=== PATIENT | male | born 1935 | race Caucasian/White ===

== ENCOUNTER 2016-10-02 13:23 | Emergency (ER) | payer MEDICARE, OTHER ==
--- NOTE | 2016-10-02 13:55 | EDM.PDOC ---
ED HISTORY OF PRESENT ILLNESS - General Chief Complaint: Chest Pain Stated Complaint: CHEST PAIN Time Seen by Provider: 10/02/16 13:50 Source of Information: Reports: Patient History Limitations: Reports: No limitations - History of Present Illness INITIAL COMMENTS - FREE TEXT/NARRATIVE: 80-year-old male presents the ED for evaluation of left upper anterior chest pain which is primarily sharp and stabbing and is intermittent. It's been bothersome almost all day long. He did go for a long walk and it didn't seem to make the pain any worse. Of note he has a history of coronary disease with triple bypass 12 years ago and subsequently has numerous stents placed. Pain does radiate through to his back above his scapula area. Has not made him feel short of breath and he does not have any true pleuritic pain with deep breathing. Denies cough or sputum production. He has not been sick recently. No recent changes in medications. No recent long trips or risk factors for DVT. He is chronically anticoagulated with Coumadin 6 mg daily. Symptom Onset Date: 10/02/16 Symptom Onset Time: 08:00 Timing/Duration: Reports: Hour(s):, Sudden onset Severity: moderate Location, General: Reports: chest (Left precordial and upper chest radiating through to the mid back.) Quality: Reports: Sharp, Stabbing Improves with: Reports: None Worsens with: Reports: None Context, General: Reports: Other (Pain is present at rest and comes and goes.). Denies: Activity, Exercise, Lifting, Sick contact, Trauma Associated Symptoms (General): Reports: chest pain. 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 SPRAYER: Reports: Other (see below) (None) - Related Data Allergies/ADRs: Allergies Allergy/AdvReac Type Severity Reaction Status Date / Time [id number] Reductase AdvReac Muscle Verified 10/02/16 13:30 Inhibitor Aches Home Meds: Home Meds .[place] 2 tab PO DAILY 12/08/13 [History] .Capsicum 3 cap PO DAILY 12/08/13 [History] .Chondroitin 1 tab PO DAILY 12/08/13 [History] .Coenzyme 1 cap PO DAILY 12/08/13 [History] .Methylsulfonylmethane 1 cap PO DAILY 12/08/13 [History] .Multiple Enzyme 1 tab PO DAILY 12/08/13 [History] .Oil Of Oregano 2 cap PO DAILY 12/08/13 [History] .Vitamin B12 1 tab PO DAILY 12/08/13 [History] .Vitamin D3 2,000 units PO DAILY 12/08/13 [History] Aspirin [Halfprin] 81 mg PO BID 12/08/13 [History] Bromocriptine [Parlodel] 1.25 mg PO DAILY 12/08/13 [History] Carvedilol [Coreg] 6.25 mg PO BID 12/08/13 [History] Flaxseed [Flaxseed Oil] 1,000 mg PO DAILY 12/08/13 [History] Garlic 1 each PO DAILY #0 12/08/13 [Rx] Cyndy Root [Cyndy] 250 mg PO DAILY 12/08/13 [History] Methylcellulose [Citrucel] 2 tbsp PO DAILY 12/08/13 [History] Niacin (Inositol Niacinate) [Niacin Flush Free 500 mg Cap] 2,000 mg PO DAILY 12/16 [History] [place]-3 Fatty Acids [Independence-3] 2,000 mg PO DAILY #0 12/08/13 [Rx] Warfarin Sodium [Coumadin] 6 mg PO DAILY #0 12/08/13 [Rx] Isosorbide Mononitrate [Imdur] 30 mg PO DAILY 07/21/16 [History] Multivitamin with Minerals [Manav Multivitamin with Mineral] 1 tab PO DAILY 07/21 [History] Acetaminophen/HYDROcodone [[place] 325-5 MG] 1 tab PO Q4H #12 tablet 10/02/16 [Rx] Past Medical History Cardiovascular History: Reports: Bypass, CAD, High cholesterol, Stents Respiratory History: Reports: Other (see below) Other Respiratory History: 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 Gastrointestinal History: Reports: Hiatal hernia Hematologic History: Reports: Other (see below) Other Hematologic History: Factor V - Infectious Disease History Infectious Disease History: Reports: Measles, Mumps - Past Surgical History Cardiovascular Surgical History: Reports: Coronary artery bypass, Coronary artery stent Social & Family History - Tobacco Use Smoking Status *Q: Former Smoker Years of Tobacco use: 10 Packs/Tins Daily: 1 Used Tobacco, but Quit: Yes Month Tobacco Last Used: 50 years ago - Caffeine Use Caffeine Use: Reports: Coffee - Alcohol Use Days Per Week of Alcohol Use: 1 - Recreational Drug Use Recreational Drug Use: No - Living Situation & Occupation Living situation: Reports: , with spouse Occupation: retired ED ROS GENERAL - Review of Systems Review Of Systems: See Below Constitutional: Denies: fever, chills, malaise, fatigue, decreased appetite, weight loss HEENT: Reports: No symptoms Respiratory: Denies: Shortness of Breath, Wheezing, Pleuritic Chest Pain, Cough , Sputum, Hemoptysis, Other Cardiovascular: Reports: Chest pain (Left upper anterior chest sharp stabbing pain which appears to be muscles for little.), Blood pressure problem. Denies: Claudication (Usually runs a little low due to medications.), Dyspnea on exertion, Edema, Lightheadedness, Orthopnea Endocrine: Reports: no symptoms GI/Abdominal: Reports: No symptoms : Reports: no symptoms, frequency, other (. X2) Musculoskeletal: Reports: no symptoms Skin: Reports: no symptoms Neurological: Reports: No Symptoms Psychiatric: Reports: No symptoms Hematologic/Lymphatic: Reports: no symptoms Immunologic: Reports: no symptoms ED EXAM, GENERAL - Physical Exam Exam: See Below Exam Limited By: No limitations General Appearance: alert, WD/WN, no apparent distress, anxious (My) Eye Exam: bilateral eye: normal inspection (Normal) Throat/Mouth: Normal inspection, Normal lips, Normal teeth, Normal oropharynx Head: atraumatic, normocephalic Neck: normal inspection, supple, non-tender, full range of motion. No: carotid bruit, lymphadenopathy (L), lymphadenopathy (R) Respiratory/Chest: no respiratory distress, lungs clear, normal breath sounds, no accessory muscle use, chest non-tender, other (Cannot identify any specific area of localized pain in the left upper anterior 45 ribs.) Cardiovascular: normal peripheral pulses, regular rate, rhythm, no edema, no gallop, no murmur, no rub, other (Well healed midline sternotomy incision) Peripheral Pulses: 1+: posterior tibial (L), posterior tibial (R), dorsalis pedis (L), dorsalis pedis (R) GI/Abdominal: normal bowel sounds, soft, non tender, no organomegaly, no distention Back Exam: normal inspection, full range of motion. No: CVA tenderness (L), CVA tenderness (R) Extremities: normal inspection, normal range of motion, non-tender, no pedal edema, normal capillary refill, other (Tabs are nontender nonswollen.). No: pedal edema, leg pain Neurological: alert, oriented, CN II-XII intact, normal cognition Psychiatric: normal affect, normal mood Skin Exam: Warm, Dry, Intact, Normal color, No rash EKG INTERPRETATION EKG Date: 10/02/16 Time: 13:30 Rhythm: NSR Rate (beats/min): 65 [place]: normal P-wave: present QRS: normal ST-T: normal QT: prolonged (Family prolonged) Course - Vital Signs Last Recorded V/S: Last Vital Signs Temp 35.7 C 10/02/16 13:32 Pulse 65 10/02/16 17:25 Resp 16 10/02/16 17:25 BP 93/58 L 10/02/16 17:25 Pulse Ox 90 L 10/02/16 17:25 - Orders/Labs/Meds Labs: Laboratory Tests 10/02/16 10/02/16 10/02/16 Range/Units 13:49 13:49 13:49 WBC 5.73 (4.23-9.07) K/mm3 RBC 4.28 L (4.63-6.08) M/mm3 Hgb 14.1 (13.7-17.5) gm/L Hct 41.4 (40.1-51.0) % MCV 96.7 H (79.0-92.2) fl MCH 32.9 H (25.7-32.2) pg MCHC 34.1 (32.2-35.5) g/dl RDW Std Deviation 43.7 (35.1-43.9) fL Plt Count 174 (163-337) K/mm3 MPV 9.5 (9.4-12.3) fl Neutrophils % (Manual) 56 (40-60) % Band Neutrophils % 0 (0-10) % Lymphocytes % (Manual) 34 (20-40) % Atypical Lymphs % 0 % Monocytes % (Manual) 3 (2-10) % Eosinophils % (Manual) 6 (0.8-7.0) % Basophils % (Manual) 1 (0.2-1.2) Platelet Estimate Adequate Poikilocytosis 1+ slight Anisocytosis 1+ slight Macrocytosis 1+ slight RBC Morph Comment Not Reportable PT 16.7 H (8.0-13.0) SECONDS INR 1.49 D-Dimer, Quantitative (0.19-0.59) mg/L Sodium 136 (136-145) mEq/L Potassium 4.5 (3.5-5.1) mEq/L Chloride 105 (98-107) mEq/L Carbon Dioxide 26 (21-32) mEq/L Anion Gap 9.5 (5-15) BUN 20 H (7-18) mg/dL Creatinine 0.6 L (0.7-1.3) mg/dL Est Cr Clr Drug Dosing 94.87 mL/min Estimated GFR (MDRD) > 60 (>60) mL/min BUN/Creatinine Ratio 33.3 H (14-18) Glucose 132 H (83-115) mg/dL Calcium 8.4 L (8.5-10.1) mg/dL Total Bilirubin 0.3 (0.2-1.0) mg/dL AST 18 (15-37) U/L ALT 21 (16-63) U/L Alkaline Phosphatase 52 (46-116) U/L CK-MB (CK-2) 1.3 (0-3.6) ng/ml Troponin I < 0.017 (0.00-0.056) ng/mL C-Reactive Protein < 0.2 (<1.0) mg/dL B-Natriuretic Peptide (0-100) pg/mL Total Protein 6.6 (6.4-8.2) g/dl Albumin 3.3 L (3.4-5.0) g/dl Globulin 3.3 gm/dL Albumin/Globulin Ratio 1.0 (1-2) 10/02/16 10/02/16 Range/Units 13:49 13:49 WBC (4.23-9.07) K/mm3 RBC (4.63-6.08) M/mm3 Hgb (13.7-17.5) gm/L Hct (40.1-51.0) % MCV (79.0-92.2) fl MCH (25.7-32.2) pg MCHC (32.2-35.5) g/dl RDW Std Deviation (35.1-43.9) fL Plt Count (163-337) K/mm3 MPV (9.4-12.3) fl Neutrophils % (Manual) (40-60) % Band Neutrophils % (0-10) % Lymphocytes % (Manual) (20-40) % Atypical Lymphs % % Monocytes % (Manual) (2-10) % Eosinophils % (Manual) (0.8-7.0) % Basophils % (Manual) (0.2-1.2) Platelet Estimate Poikilocytosis Anisocytosis Macrocytosis RBC Morph Comment PT (8.0-13.0) SECONDS INR D-Dimer, Quantitative 0.19 (0.19-0.59) mg/L Sodium (136-145) mEq/L Potassium (3.5-5.1) mEq/L Chloride (98-107) mEq/L Carbon Dioxide (21-32) mEq/L Anion Gap (5-15) BUN (7-18) mg/dL Creatinine (0.7-1.3) mg/dL Est Cr Clr Drug Dosing mL/min Estimated GFR (MDRD) (>60) mL/min BUN/Creatinine Ratio (14-18) Glucose (83-115) mg/dL Calcium (8.5-10.1) mg/dL Total Bilirubin (0.2-1.0) mg/dL AST (15-37) U/L ALT (16-63) U/L Alkaline Phosphatase (46-116) U/L CK-MB (CK-2) (0-3.6) ng/ml Troponin I (0.00-0.056) ng/mL C-Reactive Protein (<1.0) mg/dL B-Natriuretic Peptide 30 (0-100) pg/mL Total Protein (6.4-8.2) g/dl Albumin (3.4-5.0) g/dl Globulin gm/dL Albumin/Globulin Ratio (1-2) Meds: Medications Discontinued Medications Generic Name Dose Route Start Last Admin Trade Name Freq PRN Reason Stop Dose Admin Hydromorphone HCl 0.5 mg 10/02/16 14:24 10/02/16 14:34 Dilaudid IVPUSH 10/02/16 14:25 0.5 mg ONETIME ONE Administration Ondansetron HCl 4 mg 10/02/16 14:24 10/02/16 14:34 Zofran IVPUSH 10/02/16 14:25 4 mg ONETIME ONE Administration Sodium Chloride 10 ml 10/02/16 14:24 10/02/16 14:41 Saline Flush FLUSH 10 ml ASDIRECTED PRN Administration Keep Vein Open - Radiology Interpretation Free Text/Narrative:: 72-year-old male presents the ED for evaluation of sharp stabbing pains in his left upper anterior chest that radiates through to his upper back. Started this morning no worse with walking or activity. No worse with deep breathing. 2 severe musculoskeletal in origin I will I'm not able to isolate identify a specific area of pain on examination. Reports the pain seems to radiate up and towards the left exam and upper arm as well. He has a history of coronary disease with having had triple bypass 12 years ago and has had multiple stent placements since that time. He just is worried that it's his heart but without worsening pain on exertion this is highly unlikely. No recent trips and no risk factors for DVT he is on Coumadin 6 mg daily. ECG shows sinus rhythm at 65 per minute with no signs of ischemia. Plan lab work will be commenced to include cardiac markers and a d-dimer. Not going to give him any medication for pain at this time. - Re-Assessments/Exams Free Text/Narrative Re-Assessment/Exam: 10/02/16 14:26 Jean Paul is complaining that his left chest pain is actually coming back and is a little bit worse. However given Dilaudid 0.5 mg IV with Zofran 4 mg IV for pain relief. He can take anti-inflammatories as he is on Coumadin. This x-ray done is unchanged from previous chest x-rays. Shows no evidence of a pneumothorax or infiltrate in the left upper lung field. Cardiac silhouette is within normal limits. 10/02/16 15:17 lab work reveals a total white count of 5.73. Hemoglobin is 14.1 hematocrit 41.4 platelets 174,000. PT is 16.7 INR is a little low at 1.49. D- dimer is normal at 0.19 however. Sodium 136 potassium 4.5. Pleural 5. BUN is 20. Glucose 132. BNP is 30. Cardiac markers are normal. Patient was reassured that current chest pain is not related to his heart. It appears to be muscles little in origin and when he thinks about it he was rotatory no guarding but 3 days ago which would correlate with development of muscular skeletal pain particularly if he bled into the muscles while on Coumadin. We spoke about changing his Coumadin to 8 mg 4 times weekly and 6 mg 3 times weekly to bring his INR upper portion to therapeutic value. He will followup if any further problems occur. Departure - Departure Time of Disposition: 16:58 Disposition: Home, Self-Care 01 Condition: good Clinical Impression: Non-cardiac chest pain Prescriptions: Acetaminophen/HYDROcodone [[place] 325-5 MG] 1 tab PO Q4H #12 tablet Instructions: Nonspecific Chest Pain, [id number] Referrals: Merari Garibay COMMUNICATIONS PLANNER [Primary Care Provider] - Forms: ED Department Discharge Additional Instructions: Evaluation in the emergency day in regards to left upper anterior chest pain radiating through to her back. Pain progressed in intensity as the day went on. Cardiac workup was therefore carried out and there was no evidence of heart related illness. Cardiac markers in fact are zero. Also no blood clot was identified within the lungs. Did find that you're INR was a bit on the low side at 1.49 and as we discussed I would suggest taking your Coumadin 8 mg 4 days a week and does the other days 6 mg once daily to bring the INR of closer to 2.0. Pain I believe it is musculoskeletal in origin. May be related to recent doubling of the garden a few days ago. Minimal bleeding and the muscles from being on Coumadin could cause muscle spasm and sharp pains in between ribs et cetera. I did prescribe a pain pill called [place] 5 325 mg which she can take one every 4-6 hours as necessary for pain relief if needed. I would expect that in 3-4 days' time the pain goes away completely on its own. No restrictions in terms of activity at this time. Follow up with her personal physician if any further problems occur.
[2016-10-02] MEDS ORDERED: Ondansetron 4 MG/2 ML SDV IVPUSH ONE (14:24)
[2016-10-02] MEDS ORDERED: HYDROmorphone 0.5 MG/0.5 ML Syringe IVPUSH ONE (14:24)
[2016-10-02] MEDS ORDERED: Sodium Chloride 0.9% 10 ML Syringe FLUSH PRN (14:24)
--- NOTE | 2016-10-02 14:27 | CR ---
Chest: Portable view of the chest was obtained. Comparison: Previous chest x-ray of 07/21/16. Heart size appears within normal limits for portable technique. Tortuous thoracic aorta is seen. Hiatal hernia is noted. Lungs are clear with no acute infiltrates. Old bilateral rib fractures are noted. Previous sternotomy is present. Impression: 1. Findings as noted above. No significant change is seen from prior chest x-ray. 2. Nothing acute is identified on portable chest x-ray. Diagnostic code #2
[2016-10-02 17:30] VITALS: BP 93/58
== END 2016-10-02 17:25 | disposition home or self-care (01) ==
LOC: SUPCPDRO 13:23 → JD.ED 13:23
DX: R07.81 Pleurodynia (principal); I25.10 Atherosclerotic heart disease of native coronary artery without angina pectoris; E78.00 Pure hypercholesterolemia, unspecified; Z88.8 Allergy status to other drugs, medicaments and biological substances; Z79.899 Other long term (current) drug therapy; Z79.82 Long term (current) use of aspirin; Z95.5 Presence of coronary angioplasty implant and graft; Z87.891 Personal history of nicotine dependence
CPT/HCPCS: 36415; 71010; 80053; 82553; 83880; 84484; 85025; 85379; 85610; 86140; 93005; 96374; 96375; 99285; J1170; J2405; J7050

== ENCOUNTER 2017-07-07 18:49 | Emergency (ER) | payer MEDICARE, MEDICAID ==
[2017-07-07 19:03] VITALS: BP 153/78
[2017-07-07] MEDS ORDERED: Acetaminophen/HYDROcodone 325-5 MG Tab PO ONE (19:37)
[2017-07-07] MEDS ORDERED: Albuterol 0.083% 2.5 MG/3 ML Neb Soln NEB ONE (19:37)
--- NOTE | 2017-07-07 19:43 | EDM.PDOC ---
ED HPI GENERAL MEDICAL PROBLEM - General Chief Complaint: Respiratory Problem Stated Complaint: CONGESTED/COUGH Time Seen by Provider: 07/07/17 19:29 Source of Information: Reports: Patient History Limitations: Reports: No Limitations - History of Present Illness INITIAL COMMENTS - FREE TEXT/NARRATIVE: Patient is 81-year-old male presents to the ED with worsening cough and shortness of breath. He was diagnosed with influenza a last . He has not been taking Tamiflu. States over the past 2 days the cough and shortness of breath have worsened. He was sent from the [facility] to the ED for further evaluation for pneumonia. Patient has felt warm at times. He's been eating and drinking well. Denies any nausea or vomiting. States the cough keeps him up most hours of the evening. Thus is not resting well. Cough is nonproductive. 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 - Related Data Allergies Allergy/AdvReac Type Severity Reaction Status Date / Time Pbpbynd-Mmi-Vgy Reductase AdvReac Muscle Verified 07/07/17 19:07 Inhibitor Aches Home Meds: Home Meds .Coenzyme 1 cap PO DAILY 12/08/13 [History] .Methylsulfonylmethane 1 cap PO DAILY 12/08/13 [History] .Multiple Enzyme 1 tab PO DAILY 12/08/13 [History] .Oil Of Oregano 2 cap PO DAILY 12/08/13 [History] .Vitamin B12 1 tab PO DAILY 12/08/13 [History] .Vitamin D3 2,000 units PO DAILY 12/08/13 [History] Aspirin [Halfprin] 81 mg PO BID 12/08/13 [History] Bromocriptine [Parlodel] 1.25 mg PO DAILY 12/08/13 [History] Carvedilol [Coreg] 6.25 mg PO BID 12/08/13 [History] Flaxseed [Flaxseed Oil] 1,000 mg PO DAILY 12/08/13 [History] Methylcellulose [Citrucel] 2 tbsp PO DAILY 12/08/13 [History] [place]-3 Fatty Acids [[place]-3] 2,000 mg PO DAILY #0 12/08/13 [Rx] Warfarin Sodium [Coumadin] 6 mg PO DAILY #0 12/08/13 [Rx] Isosorbide Mononitrate [Imdur] 30 mg PO DAILY 07/21/16 [History] Multivitamin with Minerals [Manav Multivitamin with Mineral] 1 tab PO DAILY 07/21 [History] Ezetimibe [Zetia] 5 mg PO DAILY 07/07/17 [History] Hydrocodone/Chlorphen P-Stirex [Tussionex Pennkinetic Susp] 5 ml PO BID PRN # 100 [email or web address].er.12h 07/07/17 [Rx] Past Medical History Cardiovascular History: Reports: Bypass, CAD, High Cholesterol, Stents Respiratory History: Reports: Other (See Below) 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 Gastrointestinal History: Reports: Hiatal Hernia Musculoskeletal History: Reports: Other (See Below) Other Musculoskeletal History: broken ribs, compression fracture x 2 vertebrae Hematologic History: Reports: Other (See Below) Other Hematologic History: factor V - Infectious Disease History Infectious Disease History: Reports: Measles, Mumps - Past Surgical History Cardiovascular Surgical History: Reports: Coronary Artery Bypass, Coronary Artery Stent GI Surgical History: Reports: Cholecystectomy Social & Family History - Family History Family Medical History: Noncontributory - Tobacco Use Smoking Status *Q: Former Smoker Years of Tobacco use: 10 Packs/Tins Daily: 1 Used Tobacco, but Quit: Yes Month Tobacco Last Used: 60 years ago - Caffeine Use Caffeine Use: Reports: Coffee - Alcohol Use Days Per Week of Alcohol Use: 1 - Recreational Drug Use Recreational Drug Use: No - Living Situation & Occupation Living situation: Reports: , with Spouse Occupation: Retired ED ROS GENERAL - Review of Systems Review Of Systems: See Below Constitutional: Reports: Fever, Chills, Malaise. Denies: Decreased Appetite HEENT: Reports: No Symptoms Respiratory: Reports: Shortness of Breath, Cough. Denies: Wheezing, Pleuritic Chest Pain, Sputum Cardiovascular: Reports: No Symptoms GI/Abdominal: Reports: No Symptoms : Reports: No Symptoms Musculoskeletal: Reports: No Symptoms Skin: Reports: No Symptoms Neurological: Reports: No Symptoms ED EXAM, GENERAL - Physical Exam Exam: See Below Exam Limited By: No Limitations General Appearance: Alert, WD/WN, No Apparent Distress Ears: Hearing Grossly Normal Nose: Normal Inspection Throat/Mouth: Normal Voice, No Airway Compromise Neck: Normal Inspection, Supple Respiratory/Chest: No Respiratory Distress, No Accessory Muscle Use, Chest Non- Tender, Wheezing (Throughout) Cardiovascular: Normal Peripheral Pulses, Regular Rate, Rhythm Peripheral Pulses: 3+: Radial (L), Radial (R) GI/Abdominal: Normal Bowel Sounds, Soft, Non-Tender, No Organomegaly, No Distention Neurological: Alert, Oriented, CN II-XII Intact, Normal Cognition, No Motor/ Sensory Deficits Psychiatric: Normal Affect, Normal Mood Skin Exam: Warm, Dry, Intact, Normal Color Course - Vital Signs Last Recorded V/S: Last Vital Signs Temp 98.0 F 07/07/17 19:00 Pulse 70 07/07/17 20:10 Resp 16 07/07/17 19:00 BP 153/78 H 07/07/17 19:00 Pulse Ox 93 L 07/07/17 19:00 - Orders/Labs/Meds Orders: Active Orders 24 hr Category Date Time Status EKG Documentation Completion [RC] STAT Care 07/07/17 19:38 Active RT Aerosol Therapy [RC] ASDIRECTED Care 07/07/17 19:38 Active RT Post Treatment Assessment [RC] Click to Edit Care 07/07/17 21:36 Active RT Pre-Treatment Assessment [RC] Click to Edit Care 07/07/17 21:36 Active Chest 2V [CR] Stat Exams 07/07/17 19:37 Taken Labs: Laboratory Tests 07/07/17 07/07/17 07/07/17 Range/Units 20:15 20:15 20:15 WBC 6.71 (4.23-9.07) K/mm3 RBC 4.04 L (4.63-6.08) M/mm3 Hgb 13.2 L (13.7-17.5) gm/L Hct 39.3 L (40.1-51.0) % MCV 97.3 H (79.0-92.2) fl MCH 32.7 H (25.7-32.2) pg MCHC 33.6 (32.2-35.5) g/dl RDW Std Deviation 43.7 (35.1-43.9) fL Plt Count 188 (163-337) K/mm3 MPV 9.1 L (9.4-12.3) fl Neut % (Auto) 60.9 (34.0-67.9) % Lymph % (Auto) 26.8 (21.8-53.1) % [place] % (Auto) 8.6 (5.3-12.2) % Eos % (Auto) 3.6 (0.8-7.0) Baso % (Auto) 0.1 (0.1-1.2) % Neut # (Auto) 4.08 (1.78-5.38) K/mm3 Lymph # (Auto) 1.80 (1.32-3.57) K/mm3 [place] # (Auto) 0.58 (0.30-0.82) K/mm3 Eos # (Auto) 0.24 (0.04-0.54) K/mm3 Baso # (Auto) 0.01 (0.01-0.08) K/mm3 Manual Slide Review Normal smear PT 41.3 H (8.0-13.0) SECONDS INR 3.50 Sodium 141 (136-145) mEq/L Potassium 4.4 (3.5-5.1) mEq/L Chloride 105 (98-107) mEq/L Carbon Dioxide 26 (21-32) mEq/L Anion Gap 14.4 (5-15) BUN 17 (7-18) mg/dL Creatinine 0.6 L (0.7-1.3) mg/dL Est Cr Clr Drug Dosing 90.09 mL/min Estimated GFR (MDRD) > 60 (>60) mL/min BUN/Creatinine Ratio 28.3 H (14-18) Glucose 105 (83-115) mg/dL Calcium 8.6 (8.5-10.1) mg/dL Total Bilirubin 0.2 (0.2-1.0) mg/dL AST 26 (15-37) U/L ALT 36 (16-63) U/L Alkaline Phosphatase 64 (46-116) U/L C-Reactive Protein 0.8 (<1.0) mg/dL Total Protein 7.0 (6.4-8.2) g/dl Albumin 3.1 L (3.4-5.0) g/dl Globulin 3.9 gm/dL Albumin/Globulin Ratio 0.8 L (1-2) Meds: Medications Discontinued Medications Generic Name Dose Route Start Last Admin Trade Name Freq PRN Reason Stop Dose Admin Hydrocodone Bitart/Acetaminophen 1 tab 07/07/17 19:37 07/07/17 19:53 [place] 325-5 Mg PO 07/07/17 19:38 1 tab ONETIME ONE Administration Albuterol 2.5 mg 07/07/17 19:37 07/07/17 20:10 Proventil Neb Soln NEB 07/07/17 19:38 2.5 mg ONETIME ONE Administration Albuterol 8 gm 07/07/17 21:36 07/07/17 22:06 Proventil Hfa INH 07/07/17 21:37 2 puff ONETIME ONE Administration Albuterol Confirm 07/07/17 22:04 Proventil Hfa Administered 07/07/17 22:05 Dose 6.7 gm INH .STK-MED ONE - Re-Assessments/Exams Free Text/Narrative Re-Assessment/Exam: Ordered [place] one tab by mouth and also albuterol neb treatment 2.5 mg 1. Initial labs and studies include CBC, chem 14, CRP, PTT/INR, chest x-ray two- view, and EKG. CXR reviewed with Dr. Brambila, no findings concerning for pneumonia. Final interpretation is pending. EKG: Sinus rhythm at rate of [address] changes noted. Labs reviewed: Blood cell count 6.71, hemoglobin 13.2, platelet count 188, INR is 3.50 which is supratherapeutic, chemistry essentially normal. CRP 0.8. Shared results of labs and chest x-ray with the patient. States the cough has subsided drastically with the above medications. He feels the best he has since onset and influenza. Due to scarring of the lungs and risk to develop pneumonia I offered to start him on a oral antibiotic to which he refuses. We'll send him home with albuterol inhaler and a prescription for Tussionex. He will follow-up with his primary care provider the end of this week or first part of next week for reevaluation. Departure - Departure Time of Disposition: 21:37 Disposition: Home, Self-Care 01 Condition: Good Clinical Impression: Influenza A, Cough - Discharge Information Prescriptions: Hydrocodone/Chlorphen P-Stirex [Tussionex Pennkinetic Susp] 5 ml PO BID PRN # 100 [email or web address].er.12h PRN Reason: Cough Instructions: Upper Respiratory Infection, Adult, [id number] Referrals: Fede Davidson [Primary Care Provider] - Forms: ED Department Discharge Additional Instructions: As discussed will have you use albuterol inhaler 1-2 puffs every 4 hours as needed for cough, wheezing, and shortness of breath. Take the Tussionex 5 mls twice a day for persistent cough. Push the fluids. Ensure adequate rest. If at any time you develop increasing shortness of breath, fever, productive cough please return back to the ED. In addition your INR was 3.5 which is supratherapeutic. Please follow up with PCP this coming Wednesday to have the Coumadin dosage adjusted and to ensure the cough is improving. Again return to the ED if you develop any new or worsening symptoms. - My Orders Last 24 Hours: My Active Orders 07/07/17 19:37 Chest 2V [CR] Stat 07/07/17 19:38 EKG Documentation Completion [RC] STAT RT Aerosol Therapy [RC] ASDIRECTED 07/07/17 21:36 RT Post Treatment Assessment [RC] Click to Edit RT Pre-Treatment Assessment [RC] Click to Edit - Assessment/Plan Last 24 Hours: My Active Orders 07/07/17 19:37 Chest 2V [CR] Stat 07/07/17 19:38 EKG Documentation Completion [RC] STAT RT Aerosol Therapy [RC] ASDIRECTED 07/07/17 21:36 RT Post Treatment Assessment [RC] Click to Edit RT Pre-Treatment Assessment [RC] Click to Edit
[2017-07-07] MEDS ORDERED: Albuterol 6.7 GM Inhaler INH ONE ×2 (21:36→22:04)
--- NOTE | 2017-07-08 10:57 | CR ---
Chest: Two views of the chest were obtained. Comparison: Prior chest x-ray of 10/02/16. Small hiatal hernia is seen. Mild bibasilar atelectasis is noted. Lungs otherwise are clear. Old bilateral rib fractures are seen. Previous right shoulder surgery is noted. Degenerative change is noted within the spine. Previous CABG is present. Impression: 1. Incidental findings. Nothing acute is seen. Diagnostic code #2
== END 2017-07-07 22:12 | disposition home or self-care (01) ==
LOC: JD.ED 18:49
DX: J10.1 Influenza due to other identified influenza virus with other respiratory manifestations (principal); E78.00 Pure hypercholesterolemia, unspecified; Z87.891 Personal history of nicotine dependence; Z79.899 Other long term (current) drug therapy; Z79.01 Long term (current) use of anticoagulants; Z79.82 Long term (current) use of aspirin; Z88.8 Allergy status to other drugs, medicaments and biological substances
CPT/HCPCS: 36415; 71046; 80053; 85025; 85610; 86140; 93005; 94640; 94664; 99284; A9270; 93010

== ENCOUNTER 2017-10-24 19:52 | Emergency (ER) | payer MEDICARE, MEDICAID ==
[2017-10-24 20:38] VITALS: BP 137/73
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
--- NOTE | 2017-10-25 07:39 | CR ---
Chest: Two views of the chest were obtained. Comparison: Prior chest x-ray of 07/07/17. Heart size is normal. Tortuous thoracic aorta is seen. Hiatal hernia appears to be present. No acute parenchymal change is seen from previous chest x-ray. Old right-sided rib deformities are seen as well as several left-sided rib deformities compatible with previous healed fractures. Degenerative change scattered within the spine. Stable compression deformity is noted at the thoracolumbar junction. Previous sternotomy is noted. Impression: 1. Multiple findings as noted above. Nothing acute is appreciated. Diagnostic code #2
== END 2017-10-24 22:38 | disposition home or self-care (01) ==
LOC: JD.ED 19:52 → SUPCPDRO 19:52 → JD.ED 22:38
DX: J06.9 Acute upper respiratory infection, unspecified (principal); E78.00 Pure hypercholesterolemia, unspecified; Z88.8 Allergy status to other drugs, medicaments and biological substances; Z79.82 Long term (current) use of aspirin; Z79.899 Other long term (current) drug therapy; Z87.891 Personal history of nicotine dependence
CPT/HCPCS: 36415; 71046; 71046-26; 80053; 83605; 85025; 87040; 99283; 99284

== ENCOUNTER 2018-02-23 13:40 | Emergency (ER) | payer MEDICARE, MEDICAID ==
[2018-02-23] MEDS ORDERED: Ondansetron 4 MG/2 ML SDV IVPUSH ONE (13:49)
[2018-02-23] MEDS ORDERED: Sodium Chloride 0.9% 10 ML Syringe FLUSH PRN (13:49)
[2018-02-23] MEDS ORDERED: Sodium Chloride 0.9% 1,000 ML IV SCH ×3 (14:00→17:15)
--- NOTE | 2018-02-23 14:40 | EDM.PDOC ---
ED HPI GENERAL MEDICAL PROBLEM - General Chief Complaint: General Stated Complaint: [facility] Time Seen by Provider: 02/23/18 13:47 Source of Information: Reports: Patient, RN Notes Reviewed - History of Present Illness INITIAL COMMENTS - FREE TEXT/NARRATIVE: 82-year-old male has been brought in by ambulance after suffering near syncope a short time ago. He states that even at lunchtime a couple of hours ago he did not "feel well. He felt his stomach was mildly upset. He had no appetite and did not eat or drink much for lunch. Later he began to feel dizzy and lightheaded. He had been feeling fine this past morning, had done considerable yardwork without difficulty. About an hour before arrival he started feeling more lightheaded, nauseated and dizzy. His gave him a nitroglycerin. Sounds like he may have had some very mild chest discomfort at the time as well but nothing severe. With the nitroglycerin he became even more lightheaded and dizzy, and may have passed out briefly. EMS was called at that time. Upon their arrival blood pressure was only 70 systolic. He was pale, diaphoretic, nauseated, no chest or abd pain at that time. Upon arrival starting to feel somewhat better and BP up to about 90 systolic. He does have history of coronary artery disease with prior bypass surgery many years ago. No recent vomiting or diarrhea. No recent black or tarry stools. He is on Coumadin, Coreg in addition to his other meds. 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 ENGINEER: Reports: Other (see below) Other 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 ENGINEER: NTG SL - Related Data Allergies Allergy/AdvReac Type Severity Reaction Status Date / Time [id number]-Zmn-Czh Reductase AdvReac Muscle Verified 07/07/17 19:07 Inhibitor Aches Home Meds: Home Meds Aspirin [Halfprin] 162 mg PO BID 12/08/13 [History] Bromocriptine [Parlodel] 1.25 mg PO DAILY 12/08/13 [History] Carvedilol [Coreg] 6.25 mg PO BID 12/08/13 [History] Flaxseed [Flaxseed Oil] 1,000 mg PO DAILY 12/08/13 [History] Methylcellulose [Citrucel] 2 tbsp PO DAILY 12/08/13 [History] [place]-3 Fatty Acids [[place]-3] 2,000 mg PO DAILY #0 12/08/13 [Rx] Ezetimibe [Zetia] 10 mg PO DAILY 07/07/17 [History] Cholecalciferol (Vitamin D3) [Vitamin D3] 2,000 unit PO DAILY 10/24/17 [History] Methylsulfonylmethane [MSM] 1 tab PO DAILY 10/24/17 [History] Oregano Oil [Oil of Oregano] 1,500 mg PO DAILY 10/24/17 [History] Ubidecarenone [Coenzyme Q-10] 1 tab PO DAILY 10/24/17 [History] Warfarin Sodium [Coumadin] 6 mg PO MOTUWEFRSA 10/24/17 [History] Warfarin Sodium [Coumadin] 8 mg PO SUTH 10/24/17 [History] Albuterol Sulfate [Proair Respiclick] 1 puff INH ASDIRECTED PRN 02/23/18 [ History] Ranger 1 cap PO DAILY 02/23/18 [History] Fluticasone/Vilanterol [Breo Ellipta 200-25 Mcg INH] 1 puff INH DAILY 02/23/18 [ History] Garlic 1 tab PO DAILY 02/23/18 [History] Cyndy Root [Cyndy] 0 mg PO DAILY 02/23/18 [History] Isosorbide Mononitrate [Imdur] 60 mg PO DAILY 02/23/18 [History] Nitroglycerin [Nitrostat] 0.4 mg PO ASDIRECTED 02/23/18 [History] Past Medical History Cardiovascular History: Reports: Angina, Blood Clots/VTE/DVT, Bypass, CAD, High Cholesterol Respiratory History: Reports: PE 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 Gastrointestinal History: Reports: Hiatal Hernia Musculoskeletal History: Reports: Fracture Other Musculoskeletal History: broken ribs, compression fracture x 2 vertebrae Hematologic History: Reports: Anticoagulation Therapy, Other (See Below) Other Hematologic History: factor V - Infectious Disease History Infectious Disease History: Reports: Measles, Mumps - Past Surgical History Cardiovascular Surgical History: Reports: Coronary Artery Bypass, Coronary Artery Stent GI Surgical History: Reports: Cholecystectomy, Hernia, Inguinal Musculoskeletal Surgical History: Reports: Other (See Below) Social & Family History - Family History Family Medical History: Noncontributory - Tobacco Use Smoking Status *Q: Former Smoker Used Tobacco, but Quit: Yes Month/Year Tobacco Last Used: 50 yrs - Caffeine Use Caffeine Use: Reports: Coffee - Recreational Drug Use Recreational Drug Use: No - Living Situation & Occupation Living situation: Reports: , with Spouse Occupation: Retired ED ROS GENERAL - Review of Systems Review Of Systems: See Below Constitutional: Reports: Diaphoresis. Denies: Fever, Chills HEENT: Denies: Throat Pain Respiratory: Denies: Shortness of Breath, Wheezing, Pleuritic Chest Pain Cardiovascular: Reports: Chest Pain (Mild tightness, gone) GI/Abdominal: Reports: Decreased Appetite, Nausea. Denies: Abdominal Pain, Diarrhea, Vomiting Musculoskeletal: Denies: Leg Pain Skin: Reports: Diaphoresis Neurological: Reports: Dizziness. Denies: Headache, Numbness, Tingling, Trouble Speaking ED EXAM, GENERAL - Physical Exam Exam: See Below General Appearance: Alert, No Apparent Distress Eye Exam: Bilateral Eye: PERRL Throat/Mouth: Normal Inspection Head: Atraumatic Neck: Supple, Full Range of Motion, Other Respiratory/Chest: No Respiratory Distress (No JVD), Lungs Clear, Normal Breath Sounds Cardiovascular: Regular Rate, Rhythm GI/Abdominal: Soft, Non-Tender. No: Guarding Rectal (Males) Exam: Normal Exam, Normal Rectal Tone, Heme - Stool (Small amount of brown stool heme-negative), Other Back Exam: No: CVA Tenderness (L), CVA Tenderness (R) Extremities: Normal Inspection, Normal Range of Motion. No: Pedal Edema, Leg Pain Neurological: Alert, Oriented, No Motor/Sensory Deficits Skin Exam: Warm, Dry, Other (Still mildly pale, no longer diaphoretic) EKG INTERPRETATION EKG Date: 02/23/18 Rhythm: NSR P-Wave: Present QRS: Normal ST-T: Other (Inverted T-wave in lead III, about 0.[address] elevation the 4, 5 and 6.) Course - Vital Signs Last Recorded V/S: Last Vital Signs Temp 97.1 F 02/23/18 14:05 Pulse 72 02/23/18 14:05 Resp 14 02/23/18 14:05 BP 83/50 L 02/23/18 14:05 Pulse Ox 89 L 02/23/18 14:05 - Orders/Labs/Meds Orders: Active Orders 24 hr Category Date Time Status EKG 12 Lead [EKG Documentation Completion] [] STAT Care 02/23/18 13:49 Active Hemoccult [Fecal Occult Blood Collection] [] Care 02/23/18 15:48 Active ASDIRECTED Peripheral IV Care [RC] . DIRECTED Care 02/23/18 13:50 Active Chest 1V Frontal [CR] Stat Exams 02/23/18 18:43 Taken Sodium Chloride 0.9% [Normal Saline] 1,000 ml Med 02/23/18 17:15 Active IV ASDIRECTED Sodium Chloride 0.9% [Normal Saline] 1,000 ml Med 02/23/18 14:00 Active IV ONETIME Sodium Chloride 0.9% [Normal Saline] 1,000 ml Med 02/23/18 16:00 Active IV ONETIME Sodium Chloride 0.9% [Saline Flush] Med 02/23/18 13:49 Active 10 ml FLUSH ASDIRECTED PRN Peripheral IV Insertion Adult [OM.PC] Stat Oth 02/23/18 13:49 Ordered Medication Orders Sodium Chloride (Normal Saline) 1,000 mls @ 999 mls/hr IV ONETIME KEVAN Last Admin: 02/23/18 14:03 Dose: 999 mls/hr Sodium Chloride (Normal Saline) 1,000 mls @ 999 mls/hr IV ONETIME KEVAN Last Admin: 02/23/18 15:55 Dose: 999 mls/hr Sodium Chloride (Normal Saline) 1,000 mls @ 75 mls/hr IV ASDIRECTED KEVAN Last Admin: 02/23/18 17:06 Dose: 75 mls/hr Sodium Chloride (Saline Flush) 10 ml FLUSH ASDIRECTED PRN PRN Reason: Keep Vein Open Last Admin: 02/23/18 14:03 Dose: 10 ml Labs: Laboratory Tests 02/23/18 02/23/18 02/23/18 Range/Units 14:05 14:05 14:05 WBC 4.86 (4.23-9.07) K/mm3 RBC 4.17 L (4.63-6.08) M/mm3 Hgb 13.8 (13.7-17.5) gm/L Hct 40.6 (40.1-51.0) % MCV 97.4 H (79.0-92.2) fl MCH 33.1 H (25.7-32.2) pg MCHC 34.0 (32.2-35.5) g/dl RDW Std Deviation 45.8 H (35.1-43.9) fL Plt Count 181 (163-337) K/mm3 MPV 9.4 (9.4-12.3) fl Neut % (Auto) 55.4 (34.0-67.9) % Lymph % (Auto) 32.1 (21.8-53.1) % [place] % (Auto) 8.6 (5.3-12.2) % Eos % (Auto) 3.3 (0.8-7.0) Baso % (Auto) 0.6 (0.1-1.2) % Neut # (Auto) 2.69 (1.78-5.38) K/mm3 Lymph # (Auto) 1.56 (1.32-3.57) K/mm3 [place] # (Auto) 0.42 (0.30-0.82) K/mm3 Eos # (Auto) 0.16 (0.04-0.54) K/mm3 Baso # (Auto) 0.03 (0.01-0.08) K/mm3 PT 23.4 H (9.5-12.1) SECONDS INR 2.18 Sodium 139 (136-145) mEq/L Potassium 4.4 (3.5-5.1) mEq/L Chloride 106 (98-107) mEq/L Carbon Dioxide 24 (21-32) mEq/L Anion Gap 13.4 (5-15) BUN 22 H (7-18) mg/dL Creatinine 0.8 (0.7-1.3) mg/dL Est Cr Clr Drug Dosing 66.46 mL/min Estimated GFR (MDRD) > 60 (>60) mL/min BUN/Creatinine Ratio 27.5 H (14-18) Glucose 123 H (83-115) mg/dL Calcium 8.6 (8.5-10.1) mg/dL Total Bilirubin 0.4 (0.2-1.0) mg/dL AST 21 (15-37) U/L ALT 26 (16-63) U/L Alkaline Phosphatase 51 (46-116) U/L Troponin I < 0.017 (0.00-0.056) ng/mL Total Protein 6.4 (6.4-8.2) g/dl Albumin 3.1 L (3.4-5.0) g/dl Globulin 3.3 gm/dL Albumin/Globulin Ratio 0.9 L (1-2) 02/23/18 Range/Units 17:37 WBC (4.23-9.07) K/mm3 RBC (4.63-6.08) M/mm3 Hgb (13.7-17.5) gm/L Hct (40.1-51.0) % MCV (79.0-92.2) fl MCH (25.7-32.2) pg MCHC (32.2-35.5) g/dl RDW Std Deviation (35.1-43.9) fL Plt Count (163-337) K/mm3 MPV (9.4-12.3) fl Neut % (Auto) (34.0-67.9) % Lymph % (Auto) (21.8-53.1) % [place] % (Auto) (5.3-12.2) % Eos % (Auto) (0.8-7.0) Baso % (Auto) (0.1-1.2) % Neut # (Auto) (1.78-5.38) K/mm3 Lymph # (Auto) (1.32-3.57) K/mm3 [place] # (Auto) (0.30-0.82) K/mm3 Eos # (Auto) (0.04-0.54) K/mm3 Baso # (Auto) (0.01-0.08) K/mm3 PT (9.5-12.1) SECONDS INR Sodium (136-145) mEq/L Potassium (3.5-5.1) mEq/L Chloride (98-107) mEq/L Carbon Dioxide (21-32) mEq/L Anion Gap (5-15) BUN (7-18) mg/dL Creatinine (0.7-1.3) mg/dL Est Cr Clr Drug Dosing mL/min Estimated GFR (MDRD) (>60) mL/min BUN/Creatinine Ratio (14-18) Glucose (83-115) mg/dL Calcium (8.5-10.1) mg/dL Total Bilirubin (0.2-1.0) mg/dL AST (15-37) U/L ALT (16-63) U/L Alkaline Phosphatase (46-116) U/L Troponin I < 0.017 (0.00-0.056) ng/mL Total Protein (6.4-8.2) g/dl Albumin (3.4-5.0) g/dl Globulin gm/dL Albumin/Globulin Ratio (1-2) Meds: Medications Generic Name Dose Route Start Last Admin Trade Name Freq PRN Reason Stop Dose Admin Sodium Chloride 1,000 mls @ 999 mls/hr 02/23/18 14:00 02/23/18 14:03 Normal Saline IV 999 mls/hr ONETIME KEVAN Administration Sodium Chloride 1,000 mls @ 999 mls/hr 02/23/18 16:00 02/23/18 15:55 Normal Saline IV 999 mls/hr ONETIME KEVAN Administration Sodium Chloride 1,000 mls @ 75 mls/hr 02/23/18 17:15 02/23/18 17:06 Normal Saline IV 75 mls/hr ASDIRECTED KEVAN Administration Sodium Chloride 10 ml 02/23/18 13:49 02/23/18 14:03 Saline Flush FLUSH 10 ml ASDIRECTED PRN Administration Keep Vein Open Discontinued Medications Generic Name Dose Route Start Last Admin Trade Name Freq PRN Reason Stop Dose Admin Sodium Chloride 1,000 mls @ 999 mls/hr 02/23/18 14:51 02/23/18 14:53 Normal Saline IV 02/23/18 15:51 999 mls/hr ONETIME ONE Administration Ondansetron HCl 4 mg 02/23/18 13:49 02/23/18 14:03 Zofran IVPUSH 02/23/18 13:50 4 mg ONETIME ONE Administration - Re-Assessments/Exams Free Text/Narrative Re-Assessment/Exam: 14:35. Labs did come back all relatively normal. However blood pressure even with initial 1 L fluid bolus has remained low primarily in the 80s systolic but some readings even in the mid to upper 70s. He is felt fine without. Chest discomfort, does no longer feel weak dizzy or lightheaded. I did do a rectal exam and stool was brown, heme-negative. Therefore more fluid will be given. 16:00. Not much change, still running mostly in the 80s systolic. It was not voided. No had close to 2 L fluid, we'll plan to give more fluid if blood pressure does not start improving. 18:00. repeat troponin is negative. He has been resting comfortably. Over time have given a total of 2.5 L fluid. Pressure still primarily mid 80's systolic. 19:45. Have given a total of 3.5 L fluid over the 6 or more hours that he is been here. Blood pressure readings are now up into the mid to upper 90s with an occasional reading of around 100 systolic. Heart rate has continued to run primarily in the 60s. He continues to have no chest or abdominal pain. No nausea or vomiting while here in the ED. We did get him up to walk a short time ago and he did well with that. He did not feel weak, dizzy or lightheaded. He did void about 150 mL about an hour ago that is all he is voided since arrival. Therefore he must have been quite severely dehydrated although the lab work numerically does not reflect that. He does feel up to going home and wants to go home. Discharge instructions as documented. Departure - Departure Time of Disposition: 19:52 Disposition: Home, Self-Care 01 Condition: Fair Clinical Impression: Dehydration Syncope Qualifiers: Syncope type: unspecified Qualified Code(s): R55 - Syncope and collapse Hypotension Qualifiers: Hypotension type: unspecified hypotension type Qualified Code(s): I95.9 - Hypotension, unspecified - Discharge Information Instructions: Syncope, [id number] Referrals: PCP,None [Primary Care Provider] - Forms: ED Department Discharge Additional Instructions: Rest, increase activity slowly as tolerated, do not take the Coreg tonight and plan to not take it tomorrow morning as well. Resume that tomorrow evening as previously prescribed if your blood pressure is at least 115 systolic and preferably 120 or greater. Check your blood pressure once or twice daily for the next week or so and follow-up with your regular medical provider early next week for recheck. Bring the record of your blood pressure and heart rate readings to the clinic for that visit. Return to ED as needed if symptoms worsening in any way. - My Orders Last 24 Hours: My Active Orders 02/23/18 13:49 EKG 12 Lead [EKG Documentation Completion] [RC] STAT Sodium Chloride 0.9% [Saline Flush] 10 ml FLUSH ASDIRECTED PRN Peripheral IV Insertion Adult [OM.PC] Stat 02/23/18 13:50 Peripheral IV Care [RC] . DIRECTED 02/23/18 14:00 Sodium Chloride 0.9% [Normal Saline] 1,000 ml IV ONETIME 02/23/18 15:48 Hemoccult [Fecal Occult Blood Collection] [RC] ASDIRECTED 02/23/18 16:00 Sodium Chloride 0.9% [Normal Saline] 1,000 ml IV ONETIME 02/23/18 17:15 Sodium Chloride 0.9% [Normal Saline] 1,000 ml IV ASDIRECTED 02/23/18 18:43 Chest 1V Frontal [CR] Stat - Assessment/Plan Last 24 Hours: My Active Orders 02/23/18 13:49 EKG 12 Lead [EKG Documentation Completion] [RC] STAT Sodium Chloride 0.9% [Saline Flush] 10 ml FLUSH ASDIRECTED PRN Peripheral IV Insertion Adult [OM.PC] Stat 02/23/18 13:50 Peripheral IV Care [RC] . DIRECTED 02/23/18 14:00 Sodium Chloride 0.9% [Normal Saline] 1,000 ml IV ONETIME 02/23/18 15:48 Hemoccult [Fecal Occult Blood Collection] [RC] ASDIRECTED 02/23/18 16:00 Sodium Chloride 0.9% [Normal Saline] 1,000 ml IV ONETIME 02/23/18 17:15 Sodium Chloride 0.9% [Normal Saline] 1,000 ml IV ASDIRECTED 02/23/18 18:43 Chest 1V Frontal [CR] Stat
[2018-02-23] MEDS ORDERED: Sodium Chloride 0.9% 1,000 ML IV ONE (14:51)
[2018-02-23] MEDS ORDERED: Sodium Chloride 0.9% 500 ML IV ONE (18:30)
[2018-02-23 20:27] VITALS: BP 95/61
--- NOTE | 2018-02-24 15:00 | CR ---
Chest: Portable view of the chest was obtained. Comparison: Prior chest x-ray of 10/24/17. Moderately large hiatal hernia is seen. Heart size is normal. Tortuous thoracic aorta is seen. Deformity of multiple right sided ribs are seen compatible with old healed fractures. Several old left-sided rib fractures are also noted. Previous sternotomy is seen. No acute parenchymal change is seen within either lung. Impression: 1. Multiple findings as noted above which are stable. 2. Nothing acute is appreciated on portable chest x-ray. Diagnostic code #2
== END 2018-02-23 20:00 | disposition home or self-care (01) ==
LOC: JD.ED 13:40
DX: R55 Syncope and collapse (principal); E86.0 Dehydration; I95.9 Hypotension, unspecified; Z88.8 Allergy status to other drugs, medicaments and biological substances; Z79.82 Long term (current) use of aspirin; Z79.899 Other long term (current) drug therapy; Z87.891 Personal history of nicotine dependence
CPT/HCPCS: 36415; 71045; 80053; 82270; 84484; 85025; 85610; 93005; 96361; 96374; 99285; J2405; J7040; J7050; 93010; 99284-25

== ENCOUNTER 2018-10-10 12:45 | Emergency (ER) | payer MEDICARE, MEDICAID ==
[2018-10-10 13:03] VITALS: BP 137/87
--- NOTE | 2018-10-10 13:11 | EDM.PDOC ---
ED HPI GENERAL MEDICAL PROBLEM - General Chief Complaint: Skin Complaint Stated Complaint: ARM INJURY Time Seen by Provider: 10/10/18 12:59 Source of Information: Reports: Patient History Limitations: Reports: No Limitations - History of Present Illness INITIAL COMMENTS - FREE TEXT/NARRATIVE: 82-year-old male with history of coronary disease and A. fib on Coumadin and ASA presents to the ED complaining of right wrist pain with hematoma. Patient states he fell and caught himself. Since falling has developed a hematoma to the dorsal aspect of the wrist with increasing pain. Some pain with flexion and extension of the wrist as well. He was evaluated at the walk-in clinic with instructions to come to the ED for further evaluation to rule out compartment syndrome. Currently patient denies any n/t to his fingers. There is no pain to the metacarpals, MCPs, and/or fingers. There is a small abrasion to the third MCP. Otherwise he denies any pain to his right elbow, upper arm, shoulder, clavicle, neck, or head. He did not hit his head nor injure his neck or back. He ambulated into the emergency department on his own accord. Last INR was checked 2 weeks ago and was advised was within the lower threshold the therapeutic range. This been no changes to his Coumadin dosage. - Related Data Allergies Allergy/AdvReac Type Severity Reaction Status Date / Time Pslvqgl-Zpf-Kca Reductase AdvReac Muscle Verified 03/14/18 08:01 Inhibitor Aches Home Meds: Home Meds Aspirin [Halfprin] 162 mg PO BID 12/08/13 [History] Bromocriptine [Parlodel] 1.25 mg PO DAILY 12/08/13 [History] Carvedilol [Coreg] 6.25 mg PO BID 12/08/13 [History] Flaxseed [Flaxseed Oil] 1,000 mg PO DAILY 12/08/13 [History] Methylcellulose [Citrucel] 2 tbsp PO DAILY 12/08/13 [History] [place]-3 Fatty Acids [[place]-3] 2,000 mg PO DAILY #0 12/08/13 [Rx] Ezetimibe [Zetia] 10 mg PO DAILY 07/07/17 [History] Cholecalciferol (Vitamin D3) [Vitamin D3] 2,000 unit PO DAILY 10/24/17 [History] Methylsulfonylmethane [MSM] 1 tab PO DAILY 10/24/17 [History] Oregano Oil [Oil of Oregano] 1,500 mg PO DAILY 10/24/17 [History] Ubidecarenone [Coenzyme Q-10] 1 tab PO DAILY 10/24/17 [History] Warfarin Sodium [Coumadin] 6 mg PO MOWEFRSA 10/24/17 [History] Albuterol Sulfate [Proair Respiclick] 1 puff INH ASDIRECTED PRN 02/23/18 [ History] [place] 1 cap PO DAILY 02/23/18 [History] Fluticasone/Vilanterol [Breo Ellipta 200-25 Mcg INH] 1 puff INH DAILY 02/23/18 [ History] Garlic 1 tab PO DAILY 02/23/18 [History] Cyndy Root [Cyndy] 0 mg PO DAILY 02/23/18 [History] Isosorbide Mononitrate [Imdur] 60 mg PO DAILY 02/23/18 [History] Nitroglycerin [Nitrostat] 0.4 mg PO ASDIRECTED 02/23/18 [History] Lisinopril 5 mg PO DAILY #30 tablet 03/14/18 [Rx] Past Medical History HEENT History: Reports: Impaired Vision Cardiovascular History: Reports: Angina, Blood Clots/VTE/DVT, Bypass, CAD, High Cholesterol Respiratory History: Reports: PE 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 Gastrointestinal History: Reports: Hiatal Hernia Musculoskeletal History: Reports: Fracture Other Musculoskeletal History: broken ribs, compression fracture x 2 vertebrae Hematologic History: Reports: Anticoagulation Therapy, Other (See Below) Other Hematologic History: factor V - Infectious Disease History Infectious Disease History: Reports: Measles, Mumps - Past Surgical History Cardiovascular Surgical History: Reports: Coronary Artery Bypass, Coronary Artery Stent GI Surgical History: Reports: Cholecystectomy, Hernia, Inguinal Musculoskeletal Surgical History: Reports: Other (See Below) Social & Family History - Family History Family Medical History: Noncontributory - Tobacco Use Smoking Status *Q: Former Smoker Used Tobacco, but Quit: Yes Month/Year Tobacco Last Used: 50 - Caffeine Use Caffeine Use: Reports: Coffee - Recreational Drug Use Recreational Drug Use: No - Living Situation & Occupation Living situation: Reports: , with Spouse Occupation: Retired ED ROS GENERAL - Review of Systems Review Of Systems: ROS reveals no pertinent complaints other than HPI. ED EXAM, SKIN/RASH Exam: See Below Exam Limited By: No Limitations General Appearance: Alert, WD/WN, No Apparent Distress Ears: Hearing Grossly Normal Nose: Normal Inspection Throat/Mouth: Normal Voice, No Airway Compromise Head: Atraumatic, Normocephalic Neck: Normal Inspection, Supple, Non-Tender, Full Range of Motion Respiratory/Chest: No Respiratory Distress, Lungs Clear, Normal Breath Sounds, No Accessory Muscle Use Cardiovascular: Normal Peripheral Pulses, Regular Rate, Rhythm, No Murmur Peripheral Pulses: 0: Radial (L), Radial (R) (Right ulnar artery pulses are intact. ) Back Exam: Normal Inspection, Full Range of Motion. No: Paraspinal Tenderness, Vertebral Tenderness Extremities: Other (Skin tear with hematoma to the dorsal aspect of the right wrist. Large surgical incision along the volar aspect from prior radial artery harvest for bypass. Ulnar artery pulses intact. Patient has limited range of motion at the wrist. No pain noted to the metacarpals, MCPs, and her fingers. Small abrasion to the dorsal aspect of the right MCP. No pain along the right elbow, upper arm, shoulder, clavicle, or midline cervical neck pain. This is all with on palpation. Patient had no pain with palpation of the anatomical snuff box. ) Neurological: Alert, Oriented, CN II-XII Intact, Normal Cognition, No Motor/ Sensory Deficits Psychiatric: Normal Affect, Normal Mood Skin: Warm, Dry, Normal Color (Right: [place] fingers and hand.) Course - Vital Signs Last Recorded V/S: Last Vital Signs Temp 98.2 F 10/10/18 12:59 Pulse 65 10/10/18 12:59 Resp 20 10/10/18 12:59 BP 137/87 10/10/18 12:59 Pulse Ox 96 10/10/18 12:59 - Orders/Labs/Meds Labs: Laboratory Tests 10/10/18 Range/Units 13:20 PT 25.5 H (9.5-12.1) SECONDS INR 2.38 - Re-Assessments/Exams Free Text/Narrative Re-Assessment/Exam: I'm concerned patient has a wrist fracture. He does have a small skin tear and also hematoma noted. X-ray of the right wrist will be obtained along with a INR to evaluate for therapeutic range of the Coumadin. INR 2.38. Within the therapeutic level. X-ray right wrist Impression: 1. Incidental findings as noted above. 2. Soft tissue swelling. 3. No acute bony abnormality is identified on right wrist exam. Compression dressing was placed to the affected area along with triple antibiotic ointment applied as well per Nursing staff. Return precautions were discussed with the patient. Patient had no further questions or concerns. I will not change the patient's Coumadin dose nor aspirin. Departure - Departure Time of Disposition: 14:08 Disposition: Home, Self-Care 01 Condition: Good Clinical Impression: Skin tear Traumatic hematoma of right forearm Qualifiers: Encounter type: initial encounter Qualified Code(s): S50.11XA - Contusion of right forearm, initial encounter Sprain of wrist, right Qualifiers: Encounter type: initial encounter Qualified Code(s): S63.501A - Unspecified sprain of right wrist, initial encounter - Discharge Information Instructions: Skin Tear Care, [id number], Contusion, [id number] Referrals: Ana Olvera MD [Primary Care Provider] - Forms: ED Department Discharge Additional Instructions: Leave compression dressing in place until tomorrow morning. Cleanse site twice daily, Pat dry, reapply triple antibiotic ointment, nonadherent dressing with compression dressing as well. May apply ice to affected area 3 times a day, 20 minutes in duration, do not apply directly on the skin. Monitor for increasing pain, paresthesias, mottling of the skin, or any additional new or worsening symptoms. If so please return back to the ED for reevaluation.
--- NOTE | 2018-10-10 13:52 | CR ---
Right wrist: Four views of the right wrist were obtained. Comparison: No prior wrist exam. Soft tissue swelling is identified. Old ununited fracture is noted within the base of the ulnar styloid process. Cyst is noted within the distal ulna which is is believed to be incidental. Chondrocalcinosis noted within the triangular fibrocartilage. Degenerative change is noted between the radius and ulna. No acute fracture or dislocation is seen. Impression: 1. Incidental findings as noted above. 2. Soft tissue swelling. 3. No acute bony abnormality is identified on right wrist exam. Diagnostic code #2
== END 2018-10-10 14:33 | disposition home or self-care (01) ==
LOC: SUPCPDRO 12:45 → JD.ED 12:45
DX: S61.511A Laceration without foreign body of right wrist, initial encounter (principal); S63.501A Unspecified sprain of right wrist, initial encounter; S50.11XA Contusion of right forearm, initial encounter; I48.91 Unspecified atrial fibrillation; Z87.891 Personal history of nicotine dependence; Z79.01 Long term (current) use of anticoagulants; E78.00 Pure hypercholesterolemia, unspecified; Z79.899 Other long term (current) drug therapy; Z79.82 Long term (current) use of aspirin; Z88.8 Allergy status to other drugs, medicaments and biological substances; W19.XXXA Unspecified fall, initial encounter
CPT/HCPCS: 36415; 73110-26-RT; 73110-RT; 85610; 99283; 99283-25

== ENCOUNTER 2021-03-31 18:16 | Emergency (ER) | payer MEDICARE, OTHER ==
[2021-03-31] MEDS ORDERED: Sodium Chloride 0.9% 10 ML Syringe FLUSH PRN (19:49)
[2021-03-31] MEDS ORDERED: diphenhydrAMINE 50 MG/ML SDV IVPUSH PRN (19:49)
[2021-03-31] MEDS ORDERED: Ondansetron 4 MG/2 ML SDV IVPUSH ONE (19:49)
[2021-03-31] MEDS ORDERED: methylPREDNISolone Sodium Succinate 125 MG/2 ML SDV IVPUSH PRN (19:49)
[2021-03-31] MEDS ORDERED: EPINEPHrine 1 MG/ML SDV IM PRN (19:49)
[2021-03-31] MEDS ORDERED: Famotidine 20 MG/2 ML SDV IVPUSH PRN (19:49)
[2021-03-31] MEDS ORDERED: Sodium Chloride 0.9% 10 ML Syringe FLUSH SCH (20:00)
[2021-03-31] MEDS ORDERED: Ondansetron 4 MG Tab.DIS PO STA (20:07)
--- NOTE | 2021-03-31 20:13 | EDM.PDOC ---
ED HPI GENERAL MEDICAL PROBLEM - General Chief Complaint: Respiratory Problem Stated Complaint: COVID +/FEELING WORSE Time Seen by Provider: 03/31/21 19:39 Source of Information: Reports: Patient, RN Notes Reviewed History Limitations: Reports: No Limitations - History of Present Illness INITIAL COMMENTS - FREE TEXT/NARRATIVE: Patient is an 85-year-old male who presents to the ER for the evaluation of his COVID-19 symptoms. The patient has been sick for about 7 days. Notes that he is just not been eating much of anything at all because he has not had any appetite. He has had other random symptoms of COVID-19 to include some mild nausea, fevers, cough but the cough has subsided since the beginning of his COVID-19 disease. The primary care provider is Dr. Ellison. 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 Patient also states that he got 4 injections in his abdomen yesterday for his COVID-19 disease. Upon inspection of this, the patient was given subcutaneous injections of Regeneron, as his nephew is a pharmacist. After looking this up online on [employer]'s website, this is an acceptable route of administration for this drug. - Related Data Allergies Allergy/AdvReac Type Severity Reaction Status Date / Time Yabkcrr-Dju-Ucs Reductase AdvReac Muscle Verified 03/31/21 19:33 Inhibitor Aches Home Meds: Home Meds Aspirin [Halfprin] 162 mg PO BID 12/08/13 [History] Bromocriptine [Parlodel] 1.25 mg PO DAILY 12/08/13 [History] Flaxseed [Flaxseed Oil] 1,000 mg PO DAILY 12/08/13 [History] Methylcellulose [Citrucel] 2 tbsp PO DAILY 12/08/13 [History] [place]-3 Fatty Acids [[place]-3] 2,000 mg PO DAILY #0 12/08/13 [Rx] carvediloL [Coreg] 6.25 mg PO BID 12/08/13 [History] Ezetimibe [Zetia] 10 mg PO DAILY 07/07/17 [History] Cholecalciferol (Vitamin D3) [Vitamin D3] 2,000 unit PO DAILY 10/24/17 [History] Methylsulfonylmethane [MSM] 1 tab PO DAILY 10/24/17 [History] Oregano Oil [Oil of Oregano] 1,500 mg PO DAILY 10/24/17 [History] Ubidecarenone [Coenzyme Q-10] 1 tab PO DAILY 10/24/17 [History] Warfarin Sodium [Coumadin] 6 mg PO MOWEFRSA 10/24/17 [History] Albuterol Sulfate [Proair Respiclick] 1 puff INH ASDIRECTED PRN 02/23/18 [History] [place] 1 cap PO DAILY 02/23/18 [History] Fluticasone/Vilanterol [Breo Ellipta 200-25 MCG Inhalation Kit] 1 puff INH DAILY 02/23/18 [History] Garlic 1 tab PO DAILY 02/23/18 [History] Cyndy Root [Cyndy] 0 mg PO DAILY 02/23/18 [History] Isosorbide Mononitrate [Imdur] 60 mg PO DAILY 02/23/18 [History] Nitroglycerin [Nitrostat] 0.4 mg PO ASDIRECTED 02/23/18 [History] Lisinopril 5 mg PO DAILY #30 tablet 03/14/18 [Rx] Ondansetron [Zofran ODT] 4 mg PO Q8H PRN #15 tab.dis 03/31/21 [Rx] Past Medical History HEENT History: Reports: Impaired Vision Cardiovascular History: Reports: Angina, Blood Clots/VTE/DVT, Bypass, CAD, High Cholesterol Respiratory History: Reports: PE 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 Gastrointestinal History: Reports: Hiatal Hernia Musculoskeletal History: Reports: Fracture Other Musculoskeletal History: broken ribs, compression fracture x 2 vertebrae Hematologic History: Reports: Anticoagulation Therapy, Other (See Below) Other Hematologic History: factor V - Infectious Disease History Infectious Disease History: Reports: Measles, Mumps, Novel Coronavirus - Past Surgical History Cardiovascular Surgical History: Reports: Coronary Artery Bypass, Coronary Artery Stent GI Surgical History: Reports: Cholecystectomy, Hernia, Inguinal Musculoskeletal Surgical History: Reports: Other (See Below) Social & Family History - Family History Family Medical History: No Pertinent Family History - Tobacco Use Tobacco Use Status *Q: Never Tobacco User Second Hand Smoke Exposure: No - Caffeine Use Caffeine Use: Reports: Coffee - Recreational Drug Use Recreational Drug Use: No - Living Situation & Occupation Living situation: Reports: , with Spouse Occupation: Retired ED ROS GENERAL - Review of Systems Review Of Systems: Comprehensive ROS is negative, except as noted in HPI. ED EXAM, GENERAL - Physical Exam Exam: See Below Exam Limited By: No Limitations General Appearance: Alert, WD/WN, No Apparent Distress Respiratory/Chest: No Respiratory Distress, Lungs Clear, Normal Breath Sounds, N o Accessory Muscle Use, Chest Non-Tender Cardiovascular: Normal Peripheral Pulses, Regular Rate, Rhythm, No Edema Extremities: Normal Inspection, Normal Capillary Refill Neurological: Alert, Oriented, Normal Cognition, No Motor/Sensory Deficits Psychiatric: Normal Affect, Normal Mood Skin Exam: Warm, Dry, Intact, Normal Color, No Rash Course - Vital Signs Last Recorded V/S: Last Vital Signs Temp 97.8 F 03/31/21 19:30 Pulse 85 03/31/21 19:30 Resp 18 03/31/21 19:30 BP 134/71 03/31/21 19:30 Pulse Ox 89 L 03/31/21 19:30 - Orders/Labs/Meds Orders: Active Orders 24 hr Category Date Time Status Vital Signs [RC] Q15M Care 03/31/21 19:49 Active Chest 1V Frontal [CR] Stat Exams 03/31/21 19:48 Taken Sodium Chloride 0.9% [Saline Flush] Med 03/31/21 20:00 Active 30 ml FLUSH ASDIRECTED Medication Orders Sodium Chloride (Sodium Chloride 0.9% 10 Ml Syringe) 30 ml FLUSH ASDIRECTED KEVAN Labs: Laboratory Tests 03/31/21 03/31/21 03/31/21 Range/Units 20:10 20:10 20:10 WBC 5.84 (4.23-9.07) K/mm3 RBC 4.26 L (4.63-6.08) M/mm3 Hgb 14.2 D (13.7-17.5) gm/dl Hct 42.1 (40.1-51.0) % MCV 98.8 H D (79.0-92.2) fl MCH 33.3 H (25.7-32.2) pg MCHC 33.7 (32.2-35.5) g/dl RDW Std Deviation 45.7 H (35.1-43.9) fL Plt Count 148 L D (163-337) K/mm3 MPV 9.2 L (9.4-12.3) fl Neut % (Auto) 62.9 (34.0-67.9) % Lymph % (Auto) 23.3 (21.8-53.1) % [place] % (Auto) 13.4 H (5.3-12.2) % Eos % (Auto) 0 L (0.8-7.0) Baso % (Auto) 0.2 (0.1-1.2) % Neut # (Auto) 3.68 (1.78-5.38) K/mm3 Lymph # (Auto) 1.36 (1.32-3.57) K/mm3 [place] # (Auto) 0.78 (0.30-0.82) K/mm3 Eos # (Auto) 0.00 L (0.04-0.54) K/mm3 Baso # (Auto) 0.01 (0.01-0.08) K/mm3 Sodium 135 L (136-145) mEq/L Potassium 4.3 (3.5-5.1) mEq/L Chloride 100 (98-107) mEq/L Carbon Dioxide 26 (21-32) mEq/L Anion Gap 13.3 (5-15) BUN 17 (7-18) mg/dL Creatinine 0.6 L (0.7-1.3) mg/dL Est Cr Clr Drug Dosing 84.18 mL/min Estimated GFR (MDRD) > 60 (>60) mL/min BUN/Creatinine Ratio 28.3 H (14-18) Glucose 116 H (70-99) mg/dL Calcium 8.3 L (8.5-10.1) mg/dL Magnesium 1.9 (1.8-2.4) mg/dL Total Bilirubin 0.5 (0.2-1.0) mg/dL AST 28 (15-37) U/L ALT 33 (16-63) U/L Alkaline Phosphatase 57 (46-116) U/L C-Reactive Protein 6.7 H* (<1.0) mg/dL Total Protein 7.1 (6.4-8.2) g/dl Albumin 3.2 L (3.4-5.0) g/dl Globulin 3.9 gm/dL Albumin/Globulin Ratio 0.8 L (1-2) Meds: Medications Generic Name Dose Route Start Last Admin Trade Name Freq PRN Reason Stop Dose Admin Sodium Chloride 30 ml 03/31/21 20:00 Sodium Chloride 0.9% 10 Ml Syringe FLUSH ASDIRECTED KEVAN Discontinued Medications Generic Name Dose Route Start Last Admin Trade Name Freq PRN Reason Stop Dose Admin Diphenhydramine HCl 50 mg 03/31/21 19:49 Diphenhydramine 50 Mg/Ml Sdv IVPUSH ONETIME PRN hypersensitivity reaction Epinephrine HCl 0.3 mg 03/31/21 19:49 Epinephrine 1 Mg/Ml Sdv IM ONETIME PRN hypersensitivity reaction Famotidine 20 mg 03/31/21 19:49 Famotidine 20 Mg/2 Ml Sdv IVPUSH ONETIME PRN hypersensitivity reaction CASIRIVIMAB/IMDEVIMAB 10 ml/ 110 mls @ 220 mls/hr 03/31/21 19:49 03/31/21 20:06 Sodium Chloride IV 03/31/21 20:18 Not Given ONETIME ONE Methylprednisolone Sodium Succinate 125 mg 03/31/21 19:49 Methylprednisolone Sodium Succinate 125 Mg/2 Ml Sdv IVPUSH ONETIME PRN hypersensitivity reaction Ondansetron HCl 4 mg 03/31/21 19:49 Ondansetron 4 Mg/2 Ml Sdv IVPUSH 03/31/21 19:50 ONETIME ONE Ondansetron HCl 4 mg 03/31/21 20:07 03/31/21 20:15 Ondansetron 4 Mg Tab.Dis PO 03/31/21 20:08 4 mg ONETIME STA Administration Sodium Chloride 10 ml 03/31/21 19:49 Sodium Chloride 0.9% 10 Ml Syringe FLUSH ASDIRECTED PRN Keep Vein Open - Re-Assessments/Exams Free Text/Narrative Re-Assessment/Exam: 03/31/21 20:09 Patient presents to the ER for his COVID-19 symptoms. O2 sats have been in the low 90s while being in the ER, they did dip down to 88% directly when he walked back from the ER but did improve. We did investigate a little further on the injections that the patient stated he got yesterday, and he did receive 4 subcutaneous injections of Regeneron. Which after research on the [employer]'s website, is an acceptable route for this medication. For today's purposes we will go ahead get a chest x-ray and some basic labs for ongoing management give him some oral Zofran to see if this helps his nausea. 03/31/21 21:17 Patient's labs have resulted, and are essentially unremarkable. Patient CRP is elevated at 6.7. Will reassess him at bedside see if he is feeling a little bit better after the Zofran, O2 sats have been steadily at around 90%. They have dipped down at times to as low as 87%. Patient does have prior lung damage as well, and I do believe this is acceptable at this time as the patient's not having any increased respiratory difficulty at this time. 03/31/21 21:23 Patient states he is feeling better, he was able to keep some Powerade down and eat some crackers and states this is better than he felt in a few days. We will go ahead and discharge him home with some tablets of Zofran for ongoing management have him watch his O2 sats at home and come back to the ER at any time if symptoms change or worsen. Departure - Departure Time of Disposition: 21:24 Disposition: Home, Self-Care 01 Condition: Good Clinical Impression: COVID-19, Nausea - Discharge Information *PRESCRIPTION DRUG MONITORING PROGRAM REVIEWED*: No *COPY OF PRESCRIPTION DRUG MONITORING REPORT IN PATIENT BUD: No Instructions: 10 Things You Can Do to Manage Your COVID-19 Symptoms at Home - [facility] (01/17/2021), Prone Position Therapy Forms: ED Department Discharge Additional Instructions: You were seen in the ER today for ongoing and/or worsening respiratory symptoms. Your chest x-ray showed no signs of pneumonia at this time. Your oxygen levels were acceptable at 92 to 93% on room air. You were given a tablet of Zofran for nausea management and today's ER visit, this seemed to help relieve some of your stomach discomfort. You have been given a few tablets of this to continue taking on an outpatient basis. You can take 1 tablet dissolvable by tongue every 8 hours as needed for ongoing nausea management. This medication was electronically sent to the [facility] located on [address]. Please try to increase your oral fluid intake, and eat multiple small meals throughout the day, to keep yourself healthy. You need to keep yourself nourished in order to fight off this disease. You can try a liquid diet like gatorade/powerade as well to get your electrolytes. You may take 500 mg Tylenol every hours 6 hours for pain/fever relief. Do not exceed 4000 mg Tylenol in a 24-hour time span. However, running a fever is your body's natural response to illness, and it allows the body to develop antibodies to disease, we are recommending trying to limit the use of Tylenol as much as possible to allow your body's natural immune response. Continue to monitor your oxygen levels at home, you should place the monitor on your finger, and sit in a calm, quiet position for a few minutes and then record the number that is on the screen. If this consistently below 90% on room air without movement, this would be cause for concern to come back to the hospital for further management of your COVID-19 disease. Please follow all guidance set forth from [facility], regarding isolation purposes for your disease process. General isolation times are 10 days from when you started being symptomatic. Sepsis Event Note (ED) - Evaluation Sepsis Screening Result: No Definite Risk - Focused Exam Vital Signs: Vital Signs Temp Pulse Resp BP Pulse Ox 03/31/21 19:30 97.8 F 85 18 134/71 89 L - My Orders Last 24 Hours: My Active Orders 03/31/21 19:48 Chest 1V Frontal [CR] Stat 03/31/21 19:49 Vital Signs [RC] Q15M 03/31/21 20:00 Sodium Chloride 0.9% [Saline Flush] 30 ml FLUSH ASDIRECTED - Assessment/Plan Last 24 Hours: My Active Orders 03/31/21 19:48 Chest 1V Frontal [CR] Stat 03/31/21 19:49 Vital Signs [RC] Q15M 03/31/21 20:00 Sodium Chloride 0.9% [Saline Flush] 30 ml FLUSH ASDIRECTED
[2021-03-31 23:40] VITALS: BP 125/82; PULSE 80
--- NOTE | 2021-04-01 07:41 | CR ---
Chest: Frontal view of the chest was obtained. Comparison: Prior chest x-ray of 03/14/18. Heart size and mediastinum are normal. Hiatal hernia appears to be present. Sternotomy is noted. Old healed right-sided rib deformities are noted. Previous right shoulder surgery is seen. No acute parenchymal change is seen within either lung. Impression: 1. Stable chronic findings as noted above. 2. Nothing acute is appreciated. Diagnostic code #2
== END 2021-03-31 21:30 | disposition home or self-care (01) ==
LOC: JD.ED 18:16
DX: U07.1 COVID-19 (principal); R11.0 Nausea; I25.10 Atherosclerotic heart disease of native coronary artery without angina pectoris; Z86.711 Personal history of pulmonary embolism; Z79.01 Long term (current) use of anticoagulants; Z88.8 Allergy status to other drugs, medicaments and biological substances; Z79.82 Long term (current) use of aspirin; Z79.899 Other long term (current) drug therapy
CPT/HCPCS: 36415; 71045; 80053; 83735; 85025; 86140; 99284; A9270

== ENCOUNTER 2021-11-19 13:18 | Emergency (ER) | payer MEDICARE, OTHER ==
[2021-11-19 13:33] VITALS: BP 81/52; PULSE 60
[2021-11-19] MEDS ORDERED: Sodium Chloride 0.9% 10 ML Syringe FLUSH PRN (13:42)
[2021-11-19] MEDS ORDERED: Aspirin 81 MG Tab.Chew PO ONE (13:42)
[2021-11-19] MEDS ORDERED: Sodium Chloride 0.9% 1,000 ML IV SCH ×2 (13:45→15:00)
[2021-11-19] MEDS ORDERED: Ondansetron 4 MG/2 ML SDV IVPUSH ONE (14:37)
[2021-11-19] MEDS ORDERED: Sodium Chloride 0.9% 500 ML IV ONE (15:44)
== END 2021-11-19 17:00 | disposition home or self-care (01) ==
LOC: JD.ED 13:18
DX: I95.9 Hypotension, unspecified (principal); E86.0 Dehydration; Z87.891 Personal history of nicotine dependence
CPT/HCPCS: 36415; 71045; 80053; 84484; 85025; 85610; 93005; 96361; 96374; 99285; A9270; J2405; J3490; J7030; 93010; 99284

== ENCOUNTER 2025-06-03 05:10 | Emergency (ER) | payer MEDICARE ==
[2025-06-03] MEDS ORDERED: Sodium Chloride 0.9% 10 ML Syringe FLUSH PRN (05:20)
[2025-06-03] MEDS: Ondansetron 4 MG/2 ML SDV IVPUSH ONE (05:43)
[2025-06-03 05:48] LABS: BASOPHILS ABSOLUTE AUTO 0.0 K/mm3 (0.0-0.2); BASOPHILS PERCENT AUTO 0.4 % (0.0-1.0); EOSINOPHILS ABSOLUTE AUTO 0.1 K/mm3 (0.0-0.4); EOSINOPHILS PERCENT AUTO 0.9 % (0.0-6.0); IMMATURE GRAN ABSOLUTE AUTO 0.01 K/mm3 (0.00-0.05); IMMATURE GRAN PERCENT AUTO 0.1 % (0.0-0.4); LYMPHOCYTES ABSOLUTE AUTO 0.7 K/mm3 (1.0-4.8); LYMPHOCYTES PERCENT AUTO 10.4 % (24.0-44.0); MEAN PLATELET VOLUME 9.3 fl (9.4-12.4); MONOCYTES ABSOLUTE AUTO 0.4 K/mm3 (0.0-0.8); MONOCYTES PERCENT AUTO 6.3 % (0.0-8.0); NEUTROPHILS ABSOLUTE AUTO 5.7 K/mm3 (1.8-7.7); NEUTROPHILS PERCENT AUTO 81.9 % (41.0-71.0); NRBC ABSOLUTE 0.00 (0.00-0.02); NRBC PERCENT 0.0 % (0.0-0.2); PLATELET COUNT,PLT 157 K/mm3 (150-400); RED BLOOD CELL COUNT 4.26 M/mm3 (4.52-5.90); WHITE BLOOD CELL COUNT,WBC 6.99 K/mm3 (3.9-11.3)
[2025-06-03 06:26] LABS: A/G RATIO 1.0 (1-2); ALANINE AMINOTRANSFERASE,ALT 18.0 U/L (16-63); ASPARTATE AMNIOTRANSFERASE,AST 16.0 U/L (15-37); BILIRUBIN TOTAL 0.7 mg/dL (0.2-1.0); BLOOD UREA NITROGEN,BUN 29.0 mg/dL (7-18); CARBON DIOXIDE,CO2 29.0 mEq/L (21-32); CHLORIDE,CL 107.0 mEq/L (98-107); CREATININE 0.8 mg/dL (0.7-1.3); EST CRCL DRUG DOSING (CG) 56.59 mL/min; ESTIMATED GFR 86.0 mL/min (>60); GLUCOSE RANDOM 117.0 mg/dL (70-99); POTASSIUM,K 4.3 mEq/L (3.5-5.1); PROTEIN TOTAL,TP 6.7 g/dl (6.4-8.2); SODIUM,NA 142.0 mEq/L (136-145)
[2025-06-03 06:57] LABS: APPEARANCE,URINE CLOUDY (Clear); GLUCOSE,URINE NEGATIVE (Negative); OCCULT BLOOD,URINE 2+ (Negative)
[2025-06-03 08:12] VITALS: BP 126/66; PULSE 66
== END 2025-06-03 07:35 | disposition home or self-care (01) ==
LOC: JD.ED 05:10
DX: N13.2 Hydronephrosis with renal and ureteral calculous obstruction (principal); Z79.82 Long term (current) use of aspirin; Z79.899 Other long term (current) drug therapy; Z79.01 Long term (current) use of anticoagulants; E78.00 Pure hypercholesterolemia, unspecified; I25.10 Atherosclerotic heart disease of native coronary artery without angina pectoris; Z86.16 Personal history of COVID-19; Z95.5 Presence of coronary angioplasty implant and graft; Z95.1 Presence of aortocoronary bypass graft
CPT/HCPCS: 36415; 74176; 80053; 81001; 83690; 85025; 96361; 96374; 96375; 99284; J2405; J7030; J1171